=== PATIENT | male | born 1960 | race Caucasian/White ===

== ENCOUNTER 2016-12-14 01:19 | Emergency (ER) | payer BC ==
[~2016-12-14] VITALS: Wt 113.4 kg
[2016-12-14] MEDS ORDERED: ACULAR 3ML 3 ML5 ML OPH (02:03)
[2016-12-14] MEDS ORDERED: TOBREX OPHTH S2.5 ML OPH (02:03)
== END 2016-12-14 02:26 | disposition home or self-care (01) ==
LOC: ED 01:19
DX: H10.213 Acute toxic conjunctivitis, bilateral (principal)

== ENCOUNTER → 2019-04-18 | Outpatient (CLI) | payer BC ==
[~2019-04-18] MED LIST: ACULAR 3ML 3 ML5 ML OPH; AUGMENTIN 875875 MG PO; Flonase 0.05% 120 Me NAS; GLUCOPHAGE500 M1 PO; LISINOPRIL2.5 MG PO; PRINIVIL10 MG PO; TOBREX OPHTH S2.5 ML OPH; TRAD5TAB1 PO; VITAMIN D10000 UNIT PO
[2019-04-18 12:51] LABS: HEMATOCRIT 39.1 % (42.0-52.0); HEMOGLOBIN 11.6 g/dl (14.0-18.0); MEAN CORPUSCULAR HGB 20.2 pg (27.0-31.0); MEAN CORPUSCULAR HGB CONC 29.7 g/dl (33.0-37.0); MEAN PLATELET VOLUME 11.7 fl (9.6-12.3); RED BLOOD COUNT 5.75 10*6/uL (4.50-5.90); RED CELL DISTRI WIDTH 15.1 % (0-14.5); WHITE BLOOD COUNT 7.9 10*3/uL (4.8-10.8)
[2019-04-18 13:22] LABS: ALBUMIN 3.9 gm/dl (3.1-4.5); BUN 13 mg/dl (7-24); CHLORIDE 97 mmol/L (98-107); CHOLESTEROL 240 mg/dL (<200); CREATININE 0.78 mg/dL (0.70-1.30); POTASSIUM 4.1 mmol/L (3.5-5.1); SGOT/AST 16 IU/L (3-35); SGPT/ALT 27 U/L (12-78); SODIUM 132 mmol/L (136-145); TOTAL PROTEIN 7.9 gm/dL (6.4-8.2); TRIGLYCERIDES 661 mg/dl (<150)
[2019-04-18 13:25] LABS: ALKALINE PHOSPHATASE 135 U/L (45-117); HDL CHOLESTEROL 29 mg/dl (40-60)
[2019-04-20 16:10] LABS: TESTOSTERONE FREE, (DIRECT) 6.4 pg/mL (7.2-24.0)
== END | disposition home or self-care (01) ==
LOC: LAB 12:16
PROVIDERS: Family Medicine
DX: Z12.5 Encounter for screening for malignant neoplasm of prostate (principal); G47.33 Obstructive sleep apnea (adult) (pediatric); E78.00 Pure hypercholesterolemia, unspecified; E55.9 Vitamin D deficiency, unspecified; R53.83 Other fatigue; N52.9 Male erectile dysfunction, unspecified

== ENCOUNTER → 2019-05-02 | Outpatient (CLI) | payer BC ==
[2019-05-02 13:43] LABS: IRON 111 ug/dL (65-175); TOTAL IRON BINDING CAPACITY 391 ug/dl (250-450)
[2019-05-02 14:05] LABS: FERRITIN 483.2 ng/mL (22.0-322.0)
== END | disposition home or self-care (01) ==
LOC: LAB 12:38
PROVIDERS: Family Medicine
DX: D64.9 Anemia, unspecified (principal); E11.65 Type 2 diabetes mellitus with hyperglycemia; E78.00 Pure hypercholesterolemia, unspecified

== ENCOUNTER 2019-05-05 18:16 | Inpatient (IN) | payer OTHER, BC ==
[~2019-05-05] VITALS: Ht 162.6 cm; Wt 101.7 kg
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
--- NOTE | ~2019-05-05 | PR ---
[place], [place] PROGRESS NOTE NAME: HONORIO POLANCO UNIT #: [id number] ROOM: 412 DOCTOR: HELADIO ISAAC MD BIRTHDATE: [birth year] DOS: 05/08/2019 SUBJECTIVE: The patient is doing well without any complaints this morning. OBJECTIVE: VITAL SIGNS: Graphic trend shows a pressure of 120/54, pulse of 68, respirations 19, temperature 98.0. LUNGS: Clear. HEART: Regular. ABDOMEN: Obese, soft, nontender. EXTREMITIES: Without any edema. ASSESSMENT AND PLAN: 1. Dizziness with hypotension. The patient has been hydrated well, dizziness is resolved. Workup so far has come back negative for neurological causes of dizziness as well. 2. Type 2 diabetes mellitus, poorly controlled, Tradjenta was started and will probably would benefit from Trulicity or Ozempic once weekly medication as an outpatient. We do not have that in the formulary. I will advise this. I advised the patient to see PCP for further orders. 3. Sphenoid sinusitis. Augmentin and Flonase have been ordered. 4. Acute kidney injury. Kidney functions have improved. This is most likely from hypotension and acute tubular necrosis. Ultrasound of the kidney did not show any obstructive uropathy. HELADIO ISAAC MD CM:PNTRANS [id number] HELADIO ISAAC MD 05/20/19 0852 interface
--- NOTE | ~2019-05-05 | ST ---
[place], [place] EXERCISE STRESS TEST REPORT NAME: HONORIO POLANCO UNIT #: [id number] ROOM: 412 DOCTOR: ANTONELLA TORRES,AUREA BIRTHDATE: [birth year] DOS: 05/08/2019 EXERCISE NUCLEAR STRESS TEST REASON FOR TEST: The patient with dizziness, hypertension, diabetes. PHYSICAL EXAMINATION NECK: Supple. LUNGS: Clear anteriorly. HEART: Regular rhythm. PROTOCOL: Sebastian protocol. Total stress time 6 minutes 30 seconds. Maximum heart rate 153, which is 94% target heart rate. Peak blood pressure 196/60. Total METs, 7.6 METs. SYMPTOMS: The patient is chest pain free. EKG: Resting EKG shows sinus rhythm. Stress EKG showed no ischemia, no arrhythmias. CONCLUSION: Clinically, the patient is chest pain free. EKG nonischemic. POST-STRESS COMPLICATIONS: None. AUREA BERMAN MD CM:STRESS:EXERCISE STRESS TEST REPORT [id number] AUREA BERMAN MD
--- NOTE | ~2019-05-05 | EKG ---
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
--- NOTE | ~2019-05-05 | PR ---
[place], [place] PROGRESS NOTE NAME: HONORIO POLANCO UNIT #: [id number] ROOM: 412 DOCTOR: HELADIO ISAAC MD BIRTHDATE: [birth year] DOS: SUBJECTIVE: The patient is doing well, does not have any complaints today. OBJECTIVE: VITAL SIGNS: Blood pressure is 112/70, pulse of 70, respirations 18, temperature 98.1. LUNGS: Clear. HEART: Regular. ABDOMEN: Obese, soft, nontender. EXTREMITIES: Without any edema. DIAGNOSTIC DATA: Ultrasound of the carotids negative. MRI is pending. Ultrasound of the kidneys shows no evidence of obstructive uropathy. Echocardiogram pending. ASSESSMENT AND PLAN: 1. Dizziness with near syncope. Workup still in the progress. Echo so has not been done yet. Discussed with nursing and we will try to do a stress test tomorrow morning for the patient since he asked to stay for the echo results. 2. Acute kidney injury. This has improved back to his baseline. 3. Type 2 diabetes mellitus, poorly controlled. Started on Tradjenta. Blood sugar 216 this morning. Could add Trulicity as an outpatient as once a week injection. HELADIO ISAAC MD CM:PNTRANS [id number] HELADIO ISAAC MD 05/07/19 1227 interface
--- NOTE | ~2019-05-05 | DS ---
[place], [place] DISCHARGE SUMMARY NAME: HONORIO POLANCO UNIT #: [id number] ROOM: 412 DOCTOR: HELADIO ISAAC MD BIRTHDATE: [birth year] DOS: 05/08/2019 DIAGNOSES: 1. Acute sphenoid sinusitis. 2. Acute kidney injury from acute tubular necrosis. 3. Dizziness with hypotension. 4. Type 2 diabetes mellitus, poorly controlled. DISCHARGE MEDICATIONS: Will be Augmentin 875 mg twice a day for 10 days, Flonase nose spray 2 sprays to each nostril daily, lisinopril 2.5 mg daily, Tradjenta 5 mg daily, please consider vitamin D 10,000 units daily, also please consider once weekly injectable for this diabetic for better diabetic control. HOSPITAL COURSE: The patient is 59 years old, not known to me, comes in with complaints of dizziness and lightheadedness. Please refer to H and P details. He was found to be slightly hypotensive with acute kidney injury. The patient was hydrated, home medications were discontinued. Renal consultation with Dr. Sanders and a Cardiology consultation with Dr. Bruce were obtained. Renal ultrasound did not show any obstructive uropathy. Echocardiogram and stress test were ordered. I do not have the results at the time of dictation. MRI of the brain and carotid Doppler was ordered. Carotid Doppler was negative. MRI showed sphenoid sinusitis. The patient is placed on Augmentin and Flonase for that. The patient is relatively stable and has been restarted on a lower dose of lisinopril and Tradjenta for diabetes mellitus. He would need a better control of his diabetes and his last hemoglobin A1c was 12. If the stress test is negative this morning, the plan is to discharge to home today. Follow up with PCP. HELADIO ISAAC MD CM:DISCHARG 0748 1 HELADIO ISAAC MD 05/08/19 0801 interface
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
[~2019-05-05 18:16] MED LIST changes: -AUGMENTIN 875875 MG PO; -Flonase 0.05% 120 Me NAS; -GLUCOPHAGE500 M1 PO; -LISINOPRIL2.5 MG PO; -PRINIVIL10 MG PO; -TRAD5TAB1 PO; -VITAMIN D10000 UNIT PO
[2019-05-05 18:20] VITALS: BP 118/70
[2019-05-05 18:39] LABS: BASO % 0.3 % (0.0-1.0); EOS % 0.3 % (1.0-4.0); HEMATOCRIT 35.8 % (42.0-52.0); HEMOGLOBIN 11.2 g/dl (14.0-18.0); LYMPH # 1.6 10*3/uL (1.3-4.4); LYMPH % 15.9 % (27.0-41.0); MEAN CELL VOLUME 65.6 fl (80.0-94.0); MEAN CORPUSCULAR HGB 20.5 pg (27.0-31.0); MEAN CORPUSCULAR HGB CONC 31.3 g/dl (33.0-37.0); MEAN PLATELET VOLUME 11.7 fl (9.6-12.3); MONO # 1.5 10*3/uL (0.1-1.0); NEUT # 6.8 10*3/uL (2.3-7.9); PLATELET COUNT AUTOMATED 244 10*3/uL (130-400); RED BLOOD COUNT 5.46 10*6/uL (4.50-5.90); RED CELL DISTRI WIDTH 14.7 % (0-14.5)
[2019-05-05 18:49] LABS: ACT PARTIAL THROMBO TIME 25.3 SECONDS (20.0-32.1); INTERNATIONAL NORM RATIO 0.9 (2.0-3.5)
[2019-05-05 18:54] LABS: BUN 25 mg/dl (7-24); CHLORIDE 96 mmol/L (98-107); CREATININE 1.42 mg/dL (0.70-1.30); POTASSIUM 4.5 mmol/L (3.5-5.1); SODIUM 129 mmol/L (136-145); TROPONIN I 0.035 ng/ml (<0.045)
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
[2019-05-05 22:25] VITALS: BP 130/72
[2019-05-05 22:45] VITALS: BP 145/63
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
[2019-05-05] MEDS ORDERED: GLUCOPHAGE500 M1 PO (23:20)
[2019-05-05] MEDS ORDERED: VITAMIN D10000 UNIT PO (23:21)
[2019-05-05] MEDS ORDERED: PRINIVIL10 MG PO (23:21)
[2019-05-06] VITALS: BP 120/60
--- NOTE | 2019-05-06 01:05 | NUR ---
IV FLUIDS INFUSING WELL. RESTING IN BED WATCHING TV. INFORMED OF RENAL ULTRASOUND TO BE DONE IN AM AND DR. VICENTE CONSULT.
--- NOTE | 2019-05-06 03:15 | NUR ---
RESTING IN BED WITH EYES CLOSED. APPEARS TO BE SLEEPING.
--- NOTE | 2019-05-06 06:24 | NUR ---
SLEPT WELL THIS SHIFT. REMAINS WITHOUT C/O'S. IV FLUIDS INTACT. CONDITION GUARDED.
[2019-05-06 07:26] LABS: BUN 16 mg/dl (7-24); CHLORIDE 105 mmol/L (98-107); POTASSIUM 4.5 mmol/L (3.5-5.1); SODIUM 136 mmol/L (136-145)
[2019-05-06 08:00] VITALS: BP 132/68
--- NOTE | 2019-05-06 10:13 | NUR ---
DR. VICENTE NOTIFIED OF CONSULT
--- NOTE | 2019-05-06 10:30 | NUR ---
Policy Specialist in to see patient. He is currently not in his room. Will follow up at a later time.
--- NOTE | 2019-05-06 11:00 | NUR ---
DR. TELLO'S OFFICE NOTIFIED OF CONSULT
[2019-05-06 12:00] VITALS: BP 129/65
--- NOTE | 2019-05-06 14:35 | NUR ---
Molder Punch in to talk to patient. Patient states lives at home with his and children. There are 5 steps in the home. Physician: Dr. Gino Mireles [facility]acy: [facility] Home health services: none Patient's level of ADLs: INDEPENDENT Patient has working utilities: yes DME: none Follow-up physician's appointment after d/c: he prefers to make his own follow up appt after discharge. He states he spoke to Dr. Mireles's office this morning and they will reach out to him to make his follow up appt. Does patient want to access PORTAL?: no Discharge plan discussed with patient. He lives at home with his and children. He is independent in his ADLs and ambulation. Discussed home health care services and he denies any home needs at this time. When medically stable he will be discharged to home. His will provide transportation on discharge. CAROLINA FITCH
[2019-05-06 16:00] VITALS: BP 120/72
[2019-05-06 20:00] VITALS: BP 132/71
[2019-05-07] VITALS: BP 130/71
[2019-05-07 08:00] VITALS: BP 112/70
--- NOTE | 2019-05-07 10:30 | NUR ---
Engraver Machine in to see patient. No new needs or request at this time. He denies any home needs. When medically stable he will be discharged to home. Per multidisciplinary discharge planning meeting patient is for MRI head/brain today.
--- NOTE | 2019-05-07 11:41 | NUR ---
Nutritional Support Services Note: Instructed pt on 1800cal diabetic diet. Pt is very eager to learn and to do the right thing. Diet copy given. All questions were answered. HT.5'4 Wt.225# Encouraged healthy eating and proper portion sizes. Encouraged follow up if needed. Lory Cuba Rdn Ld
[2019-05-07 12:00] VITALS: BP 125/71
[2019-05-07 13:21] LABS: BILIRUBIN NEGATIVE (NEGATIVE); BLOOD NEGATIVE (NEGATIVE); CLARITY CLEAR (CLEAR); COLOR YELLOW (YELLOW); GLUCOSE 3+ (NEGATIVE); KETONE NEGATIVE (NEGATIVE); LEUKO ESTERASE NEGATIVE (NEGATIVE); NITRITE NEGATIVE (NEGATIVE); PH 5.5 (5.0-9.0); UROBILINOGEN 0.2 E.U./dl (0.2-1.0)
[2019-05-07 13:32] LABS: BACTERIA 1+; EPITHELIAL CELLS 0-2; RBC 0-2 rbc/hpf (0-2)
[2019-05-07 16:00] VITALS: BP 132/73
[2019-05-07 20:00] VITALS: BP 123/89
[2019-05-07 21:00] VITALS: BP 118/76
--- NOTE | 2019-05-07 23:12 | NUR ---
PT LAYING IN BED RESTING AND WATCHING TV. NO COMPLAINTS AT THIS TIME. CALL LIGHT WITHIN REACH.
[2019-05-08] VITALS: BP 120/54
--- NOTE | 2019-05-08 01:07 | NUR ---
24 HR chart check completed.
[2019-05-08 06:20] LABS: BUN 10 mg/dl (7-24); CHLORIDE 103 mmol/L (98-107); CREATININE 0.72 mg/dL (0.70-1.30); POTASSIUM 4.2 mmol/L (3.5-5.1); SODIUM 138 mmol/L (136-145)
[2019-05-08] MEDS ORDERED: TRAD5TAB1 PO (07:41)
[2019-05-08] MEDS ORDERED: LISINOPRIL2.5 MG PO (07:41)
[2019-05-08] MEDS ORDERED: Flonase 0.05% 120 Me NAS (07:41)
[2019-05-08] MEDS ORDERED: AUGMENTIN 875875 MG PO (07:41)
--- NOTE | 2019-05-08 09:17 | NUR ---
INFORMED CONSENT OBTAINED FOR AN EXERCISE CARDIOLITE STRESS TEST WITH DR. BERMAN. RESTING EKG NSR WITH A SUPINE HT RT OF 76, AND A BP OF 140/76 AND A HT RT OF 93, WITH A BP OF 112/68 IN THE STANDING POSITION. PT COMPLETED 6:30 MINUTES OF A RUBEN PROTOCOL WITH COMPLETION OF 30 SECONDS INTO STAGE III AT 3.4 MPH AND 14% GRADE. REACHED A PEAK HT RT OF 152, WHICH IS 94% OF THE PREDICTED MAX WITH A PEAK BP OF 198/60. TEST TERMINATED DUE TO FATIGUE. DENIES BEING DIZZY DUEING TESTING, NO C/O VOICED. HAS A FAIR EXERCISE TOLERANCE. LAST RECOVERY HT RT OF 104, WITH A BP OF 130/70. TAKEN TO NUCLEAR IMAGING IN STABLE CONDITION.
--- NOTE | 2019-05-08 09:30 | NUR ---
Bat Boy/Girl in to see patient. No new needs or request at this time. He denies any home needs. When medically stable he will be discharged to home. Patient is scheduled for a stress test today.
[2019-05-08 12:00] VITALS: BP 136/67
--- NOTE | 2019-05-08 13:58 | NUR ---
Front End Alignment Specialist in to see patient. No new needs or request at this time. He denies any home needs. When medically stable he will be discharged to home. Patient had a stress test today, awaiting results.
--- NOTE | 2019-05-08 15:14 | NUR ---
[facility] Discharge instructions reviewed with patient/family. Patient receptive and verbalizes understanding. Follow-up care arranged. Written instructions given to patient/family. NAV YE
== END 2019-05-08 15:14 | disposition home or self-care (01) | DRG 683 ==
LOC: ED 18:16 → 4E 21:43 → EDHOLD 21:43 → 4E 22:32
PROVIDERS: Emergency Medicine; Internal Medicine Nephrology; ADMIT Internal Medicine
PROC: 3E073KZ Introduction of Other Diagnostic Substance into Coronary Artery, Percutaneous Approach (ICD-10-PCS; principal; 2019-05-08)
PROC: 4A02XM4 Measurement of Cardiac Total Activity, External Approach (ICD-10-PCS; principal; 2019-05-08)
DX: N17.0 Acute kidney failure with tubular necrosis (principal); E87.1 Hypo-osmolality and hyponatremia; J01.30 Acute sphenoidal sinusitis, unspecified; I10 Essential (primary) hypertension; E86.9 Volume depletion, unspecified; E66.9 Obesity, unspecified; I95.1 Orthostatic hypotension; E11.65 Type 2 diabetes mellitus with hyperglycemia; E87.8 Other disorders of electrolyte and fluid balance, not elsewhere classified; Z82.49 Family history of ischemic heart disease and other diseases of the circulatory system; Z68.38 Body mass index [BMI] 38.0-38.9, adult

== ENCOUNTER → 2019-07-06 | Outpatient (CLI) | payer BC ==
[~2019-07-06] MED LIST changes: +AUGMENTIN 875875 MG PO; +Flonase 0.05% 120 Me NAS; +GLUCOPHAGE500 M1 PO; +LISINOPRIL2.5 MG PO; +PRINIVIL10 MG PO; +TRAD5TAB1 PO; +VITAMIN D10000 UNIT PO
[2019-07-06 13:11] LABS: HEMATOCRIT 37.8 % (42.0-52.0); HEMOGLOBIN 11.5 g/dl (14.0-18.0); MEAN CELL VOLUME 67.1 fl (80.0-94.0); MEAN CORPUSCULAR HGB 20.4 pg (27.0-31.0); MEAN CORPUSCULAR HGB CONC 30.4 g/dl (33.0-37.0); MEAN PLATELET VOLUME 10.5 fl (9.6-12.3); RED BLOOD COUNT 5.63 10*6/uL (4.50-5.90); RED CELL DISTRI WIDTH 16.2 % (0-14.5); WHITE BLOOD COUNT 7.8 10*3/uL (4.8-10.8)
[2019-07-06 13:40] LABS: ALBUMIN 3.9 gm/dl (3.1-4.5); ALKALINE PHOSPHATASE 111 U/L (45-117); BUN 14 mg/dl (7-24); CHLORIDE 103 mmol/L (98-107); CHOLESTEROL 191 mg/dL (<200); CREATININE 0.89 mg/dL (0.70-1.30); HDL CHOLESTEROL 33 mg/dl (40-60); POTASSIUM 4.1 mmol/L (3.5-5.1); SGOT/AST 16 IU/L (3-35); SGPT/ALT 27 U/L (12-78); SODIUM 137 mmol/L (136-145); TOTAL PROTEIN 7.7 gm/dL (6.4-8.2); TRIGLYCERIDES 416 mg/dl (<150)
== END | disposition home or self-care (01) ==
LOC: LAB 12:52
PROVIDERS: Family Medicine
DX: I10 Essential (primary) hypertension (principal); E11.9 Type 2 diabetes mellitus without complications

== ENCOUNTER → 2019-07-16 | Outpatient (CLI) | payer BC ==
[2019-07-17 04:05] LABS: RHEUMATOID ARTHRITIS FACTOR 52.1 IU/mL (0.0-13.9)
== END | disposition home or self-care (01) ==
LOC: LAB 16:03
PROVIDERS: Family Medicine
DX: M25.50 Pain in unspecified joint (principal)

== ENCOUNTER → 2019-07-22 | Outpatient (CLI) | payer BC | END | disposition home or self-care (01) | LOC: RAD 07:45 | DX: M25.462 Effusion, left knee (principal); M25.561 Pain in right knee ==

== ENCOUNTER → 2019-07-30 | Outpatient (CLI) | payer BC ==
[2019-07-31 12:07] LABS: ANTI-DSDNA ANTIBODIES 096339 1 IU/mL (0-9)
[2019-08-02 00:07] LABS: CCP ANTIBODIES IGG/IGA 9 units (0-19)
== END | disposition home or self-care (01) ==
LOC: LAB 12:13
PROVIDERS: Nurse Practitioner Family
DX: M06.9 Rheumatoid arthritis, unspecified (principal)

== ENCOUNTER → 2019-08-29 | Outpatient (CLI) | payer BC ==
[2019-08-29 17:57] LABS: HEMATOCRIT 37.2 % (42.0-52.0); HEMOGLOBIN 11.2 g/dl (14.0-18.0); MEAN CELL VOLUME 66.5 fl (80.0-94.0); MEAN CORPUSCULAR HGB CONC 30.1 g/dl (33.0-37.0); MEAN PLATELET VOLUME 10.9 fl (9.6-12.3); RED BLOOD COUNT 5.59 10*6/uL (4.50-5.90); RED CELL DISTRI WIDTH 15.3 % (0-14.5); WHITE BLOOD COUNT 8.5 10*3/uL (4.8-10.8)
[2019-08-29 18:30] LABS: ALKALINE PHOSPHATASE 144 U/L (45-117); BUN 13 mg/dl (7-24); CHLORIDE 107 mmol/L (98-107); CHOLESTEROL 183 mg/dL (<200); CREATININE 0.72 mg/dL (0.70-1.30); HDL CHOLESTEROL 34 mg/dl (40-60); LDL CHOLESTEROL 98 mg/dL (9-159); SGOT/AST 18 IU/L (3-35); SGPT/ALT 27 U/L (12-78); SODIUM 139 mmol/L (136-145); TOTAL PROTEIN 8.1 gm/dL (6.4-8.2); TRIGLYCERIDES 253 mg/dl (<150); VLDL CHOLESTEROL 51 mg/dL (6-40)
== END | disposition home or self-care (01) ==
LOC: LAB 17:28
PROVIDERS: Family Medicine
DX: E11.9 Type 2 diabetes mellitus without complications (principal); I10 Essential (primary) hypertension

== ENCOUNTER → 2019-12-09 | Outpatient (CLI) | payer BC ==
[2019-12-09 17:06] LABS: HEMATOCRIT 32.9 % (42.0-52.0); MEAN CORPUSCULAR HGB 20.2 pg (27.0-31.0); MEAN PLATELET VOLUME 11.1 fl (9.6-12.3); RED BLOOD COUNT 5.06 10*6/uL (4.50-5.90); RED CELL DISTRI WIDTH 16.4 % (0-14.5); WHITE BLOOD COUNT 6.6 10*3/uL (4.8-10.8)
[2019-12-09 17:23] LABS: BUN 18 mg/dl (7-24); CHLORIDE 105 mmol/L (98-107); CHOLESTEROL 169 mg/dL (<200); CREATININE 0.88 mg/dL (0.70-1.30); SGOT/AST 18 IU/L (3-35); SGPT/ALT 27 U/L (12-78); SODIUM 137 mmol/L (136-145)
[2019-12-09 17:26] LABS: ALKALINE PHOSPHATASE 96 U/L (45-117); HDL CHOLESTEROL 33 mg/dl (40-60); LDL CHOLESTEROL 84 mg/dL (9-159); TOTAL PROTEIN 7.9 gm/dL (6.4-8.2); TRIGLYCERIDES 260 mg/dl (<150); VLDL CHOLESTEROL 52 mg/dL (6-40)
== END | disposition home or self-care (01) ==
LOC: LAB 15:55
PROVIDERS: Family Medicine
DX: E11.9 Type 2 diabetes mellitus without complications (principal); I10 Essential (primary) hypertension

== ENCOUNTER → 2021-01-03 | Outpatient (CLI) | payer BC ==
[2021-01-03 10:37] LABS: HEMATOCRIT 38.4 % (42.0-52.0); MEAN CELL VOLUME 67.5 fl (80.0-94.0); MEAN CORPUSCULAR HGB 20.2 pg (27.0-31.0); MEAN CORPUSCULAR HGB CONC 29.9 g/dl (33.0-37.0); MEAN PLATELET VOLUME 11.2 fl (9.6-12.3); RED BLOOD COUNT 5.69 10*6/uL (4.50-5.90); RED CELL DISTRI WIDTH 17.2 % (0-14.5); WHITE BLOOD COUNT 7.3 10*3/uL (4.8-10.8)
[2021-01-03 10:55] LABS: ALBUMIN 3.8 gm/dl (3.1-4.5); BUN 7 mg/dl (7-24); CHLORIDE 108 mmol/L (98-107); CHOLESTEROL 187 mg/dL (<200); POTASSIUM 4.2 mmol/L (3.5-5.1); SGOT/AST 17 IU/L (3-35); SGPT/ALT 25 U/L (12-78); SODIUM 136 mmol/L (136-145); TOTAL PROTEIN 7.8 gm/dL (6.4-8.2); TRIGLYCERIDES 197 mg/dl (<150)
[2021-01-03 10:56] LABS: ALKALINE PHOSPHATASE 97 U/L (45-117); LDL CHOLESTEROL 116 mg/dL (9-159)
== END | disposition home or self-care (01) ==
LOC: LAB 10:07
PROVIDERS: ATTEND Nurse Practitioner Family
DX: Z12.5 Encounter for screening for malignant neoplasm of prostate (principal); I10 Essential (primary) hypertension; E11.9 Type 2 diabetes mellitus without complications

== ENCOUNTER → 2021-03-29 | Outpatient (CLI) | payer BC | END | disposition home or self-care (01) | LOC: MRI 10:53 | PROVIDERS: ATTEND Family Medicine | DX: M51.27 Other intervertebral disc displacement, lumbosacral region (principal); M47.816 Spondylosis without myelopathy or radiculopathy, lumbar region; M48.07 Spinal stenosis, lumbosacral region ==

== ENCOUNTER → 2021-11-04 | Outpatient (CLI) | payer BC | END | disposition home or self-care (01) | LOC: CARD 13:42 | PROVIDERS: ATTEND Family Medicine | DX: I35.8 Other nonrheumatic aortic valve disorders (principal); R22.43 Localized swelling, mass and lump, lower limb, bilateral; R06.02 Shortness of breath ==

== ENCOUNTER 2022-01-02 16:00 | Emergency (ER) | payer BC ==
[~2022-01-02] VITALS: Wt 113.4 kg
== END 2022-01-02 20:10 | disposition home or self-care (01) ==
LOC: ED 16:00
DX: H43.392 Other vitreous opacities, left eye (principal)

== ENCOUNTER → 2022-08-23 | Outpatient (CLI) | payer BC ==
[2022-08-23 09:36] LABS: MEAN CELL VOLUME 67.7 fl (80.0-94.0); MEAN CORPUSCULAR HGB 20.8 pg (27.0-31.0); MEAN CORPUSCULAR HGB CONC 30.8 g/dl (33.0-37.0); MEAN PLATELET VOLUME 11.1 fl (9.6-12.3); RED BLOOD COUNT 5.91 10*6/uL (4.50-5.90); RED CELL DISTRI WIDTH 16.2 % (0-14.5); WHITE BLOOD COUNT 7.3 10*3/uL (4.8-10.8)
[2022-08-23 09:51] LABS: ALKALINE PHOSPHATASE 130 U/L (46-116); BUN 11 mg/dl (9-23); CHLORIDE 99 mmol/L (98-107); CHOLESTEROL 203 mg/dL (<200); CPK 214 U/L (34-171); POTASSIUM 4.2 mmol/L (3.4-5.1); SGPT/ALT 23 U/L (10-49); TOTAL PROTEIN 7.1 gm/dL (6.0-8.0); TRIGLYCERIDES 591 mg/dl (<150)
== END | disposition home or self-care (01) ==
LOC: LAB 08:56
PROVIDERS: ATTEND Family Medicine
DX: I10 Essential (primary) hypertension (principal); E11.9 Type 2 diabetes mellitus without complications

== ENCOUNTER → 2023-07-12 | Outpatient (CLI) | payer BC | END | disposition home or self-care (01) | LOC: US 09:27 | PROVIDERS: ATTEND Family Medicine | DX: I70.213 Atherosclerosis of native arteries of extremities with intermittent claudication, bilateral legs (principal); E11.9 Type 2 diabetes mellitus without complications ==

== ENCOUNTER → 2023-08-03 | Outpatient (CLI) | payer BC ==
[2023-08-03 10:05] LABS: HEMATOCRIT 39.2 % (42.0-52.0); MEAN CELL VOLUME 68.3 fl (80.0-94.0); MEAN CORPUSCULAR HGB 20.6 pg (27.0-31.0); MEAN CORPUSCULAR HGB CONC 30.1 g/dl (33.0-37.0); MEAN PLATELET VOLUME 11.4 fl (9.6-12.3); RED BLOOD COUNT 5.74 10*6/uL (4.50-5.90); RED CELL DISTRI WIDTH 15.7 % (0-14.5); WHITE BLOOD COUNT 6.4 10*3/uL (4.8-10.8)
[2023-08-03 10:35] LABS: ALKALINE PHOSPHATASE 106 U/L (46-116); BUN 12 mg/dl (9-23); CHLORIDE 103 mmol/L (98-107); CHOLESTEROL 192 mg/dL (<200); CPK 61 U/L (34-171); LDL CHOLESTEROL 92 mg/dL (9-159); POTASSIUM 4.2 mmol/L (3.4-5.1); SGPT/ALT 12 U/L (5-49); TOTAL PROTEIN 7.6 gm/dL (6.0-8.0); TRIGLYCERIDES 337 mg/dl (<150)
== END | disposition home or self-care (01) ==
LOC: LAB 09:09
PROVIDERS: ATTEND Family Medicine
DX: Z12.5 Encounter for screening for malignant neoplasm of prostate (principal); I10 Essential (primary) hypertension; E11.9 Type 2 diabetes mellitus without complications; E78.00 Pure hypercholesterolemia, unspecified; E55.9 Vitamin D deficiency, unspecified; I25.10 Atherosclerotic heart disease of native coronary artery without angina pectoris

== ENCOUNTER → 2024-11-14 | Outpatient (CLI) | payer BC ==
[2024-11-14 07:49] LABS: HEMATOCRIT 36.7 % (42.0-52.0); MEAN CELL VOLUME 67.7 fl (80.0-94.0); MEAN CORPUSCULAR HGB 20.8 pg (27.0-31.0); MEAN CORPUSCULAR HGB CONC 30.8 g/dl (33.0-37.0); MEAN PLATELET VOLUME 10.1 fl (9.6-12.3); RED BLOOD COUNT 5.42 10*6/uL (4.50-5.90); RED CELL DISTRI WIDTH 16.6 % (0-14.5); WHITE BLOOD COUNT 6.3 10*3/uL (4.8-10.8)
[2024-11-14 08:25] LABS: ALKALINE PHOSPHATASE 103 U/L (46-116); BUN 10 mg/dl (9-23); CHLORIDE 103 mmol/L (98-107); CHOLESTEROL 213 mg/dL (<200); CPK 145 U/L (34-171); POTASSIUM 3.9 mmol/L (3.4-5.1); SGPT/ALT 14 U/L (5-49); TOTAL PROTEIN 7.1 gm/dL (6.0-8.0); TRIGLYCERIDES 432 mg/dl (<150)
[2024-11-14 11:48] LABS: VITAMIN D, 25-HYDROXY 30.4 ng/mL (30-100)
== END | disposition home or self-care (01) ==
LOC: LAB 07:16
PROVIDERS: ATTEND Family Medicine
DX: Z12.5 Encounter for screening for malignant neoplasm of prostate (principal); I10 Essential (primary) hypertension; E78.00 Pure hypercholesterolemia, unspecified; E11.9 Type 2 diabetes mellitus without complications; M19.09 Primary osteoarthritis, other specified site